=== PATIENT | male | born 1985 ===

== ENCOUNTER 2016-12-11 08:21 | Emergency (ER) | payer OTHER ==
[2016-12-11 08:41] VITALS: BMI 22.5
[2016-12-11 08:44] VITALS: TEMP 98.6; O2SAT 100
[2016-12-11] MEDS ORDERED: TDAP Vaccine 0.5 mL Syr IM ONE (09:13)
--- NOTE | 2016-12-11 09:26 | ED PDOC ---
Arrival/HPI - General Chief Complaint: Trauma Time Seen by Provider: 12/11/16 09:05 Historian: Patient - History of Present Illness Narrative History of Present Illness (Text): 12/11/16 09:22 31yr old male presents today with head injury. pt states he was getting the garbage and didnt realize that the house roof was low and hit head into the edge of the house. pt denies loc. states he was feeling dizzy initially. pt states dizziness has resolved but he is still has severe headache. describes headache as 5/10 throbbing location to the entire top of the head. pt c/o abrasion to top of scalp. denies fever/chills. unsure of last tetanus shot. no N /v. Past Medical History - Provider Review Nursing Documentation Reviewed: Yes - Travel History Have you recently traveled outside [place] w/in the past 3 mons?: No - Psychiatric Hx Substance Use: No Family/Social History - Physician Review Nursing Documentation Reviewed: Yes Family/Social History: Unknown Family HX Smoking Status: Never Smoked Hx Alcohol Use: Yes Frequency of alcohol use: Socially Hx Substance Use: No Allergies/Home Meds Allergies/Adverse Reactions: Allergies No Known Allergies Allergy (Verified 12/11/16 08:41) Review of Systems - Review of Systems Constitutional: absent: Fatigue, Fevers Eyes: absent: Vision Changes, Photophobia, Eye Pain ENT: absent: Sinus Congestion Respiratory: absent: SOB, Cough Cardiovascular: absent: Chest Pain, Palpitations Gastrointestinal: absent: Abdominal Pain, Nausea, Vomiting Skin: Laceration (abrasion of scalp) Neurological: Headache, Dizziness Physical Exam Vital Signs Reviewed: Yes Vital Signs Temp Pulse Resp BP Pulse Ox 12/11/16 10:22 70 16 110/79 100 12/11/16 08:43 98.6 F 73 17 109/74 100 Temperature: Afebrile Blood Pressure: Normal Pulse: Regular Respiratory Rate: Normal Appearance: Positive for: Well-Appearing, Non-Toxic, Comfortable Pain Distress: None Mental Status: Positive for: Alert and Oriented X 3 - Systems Exam Head: Present: Tenderness (+ ttp over abrasion site; no step offs. no crepitus) , Laceration (there is a superficial 0.5cm laceration to top of scalp; minimal bleeding; no step offs or crepitus. ) Pupils: Present: PERRL Extroacular Muscles: Present: EOMI Mouth: Present: Moist Mucous Membranes Neck: Present: Normal Range of Motion. No: MIDLINE TENDERNESS, Paraspinal Tenderness Respiratory/Chest: Present: Clear to Auscultation, Good Air Exchange. No: Respiratory Distress, Accessory Muscle Use Cardiovascular: Present: Regular Rate and Rhythm, Normal S1, S2. No: Murmurs Neurological: Present: GCS=15, Speech Normal Skin: Present: Warm, Dry, Normal Color Psychiatric: Present: Alert, Oriented x 3 Medical Decision Making ED Course and Treatment: 12/11/16 09:27 pt non toxic well appearing; no distress. tetanus updated tylenol given po ct head; wnl wound irrigated with copious amounts of NS using high pressure irrigation laceration; repaired with 1 staple 12/11/16 10:54 pt reassessment; feeling better with medications; vitals stable. will d/c home to f/u with pmd. advised keeping wound clean and dry; advised return immediately if symptoms worsen,persist or if new symptoms develop. impression; head injury, laceration scalp motrin every 6 hours as needed for pain keep wound clean and dry; apply bacitracin twice daily return in 10 days for staple removal. follow up with the primary care physician within the next 2 days return immediately if signs of infection develop; high fevers, increasing pain, redness, swelling, pus discharge or if any other concerning symptoms develop. - RAD Interpretation Radiology Orders: 12/11/16 09:13 HEAD W/O CONTRAST [CT] Stat - Medication Orders Current Medication Orders: Discontinued Medications Acetaminophen (Tylenol 325mg Tab) 975 mg PO STAT STA Stop: 12/11/16 09:14 Last Admin: 12/11/16 09:47 Dose: 975 mg Tetanus/Reduced Diphtheria/Acell Pertussis (Boostrix Vaccine Inj) 0.5 ml IM .ONCE ONE Stop: 12/11/16 09:14 Last Admin: 12/11/16 09:48 Dose: 0.5 ml Procedure: Wound Repair - Procedure Procedure: Wound Repair: scalp laceration - Performed by Performed by: Mid-level Provider - Indications Indication(s):: Laceration - Location Location:: Scalp Dimensions Length cm: 0.5cm Depth:: Epidermis - Debris Debris:: None - Irrigated Irrigated with ml of normal saline: copious amounts of NS using high pressure irrigation - Complexity Complexity:: Simple (one layer) - Wound repair method Sutures:: # (1 staple placed) - Complications Complications: none - Patient tolerated procedure Patient Tolerated Procedure:: Well Disposition/Present on Arrival - Present on Arrival Any Indicators Present on Arrival: No History of DVT/PE: No History of Uncontrolled Diabetes: No Urinary Catheter: No History of Decub. Ulcer: No History Surgical Site Infection Following: None - Disposition Have Diagnosis and Disposition been Completed?: Yes Diagnosis: Head injury, Headache, Laceration of scalp Disposition: HOME/ ROUTINE Disposition Time: 10:56 Patient Plan: Discharge Patient Problems: Current Active Problems Problem Status Onset Abrasion, scalp w/o infection Acute Head injury Acute Headache Acute Condition: GOOD Discharge Instructions (ExitCare): Head Injury (ED), Acute Wound Care (ED), Laceration (ED) Print Language: PORTUGUESE Additional Instructions: motrin every 6 hours as needed for pain keep wound clean and dry; apply bacitracin twice daily RETURN IN 10 DAYS FOR STAPLE REMOVAL. follow up with the primary care physician within the next 2 days return immediately if signs of infection develop; high fevers, increasing pain, redness, swelling, pus discharge or if any other concerning symptoms develop. Prescriptions: Bacitracin OINT 1 applic TP BID #1 tube Ibuprofen [Motrin] 600 mg PO Q6H PRN #20 tab PRN Reason: pain/fever reduction Referrals: [facility] at [facility] [place] [Outside] - Follow up with primary Brandan Rossi MD [Staff Provider] - Follow up with primary Forms: WORK NOTE
--- NOTE | 2016-12-11 10:32 | CT ---
PROCEDURE: CT HEAD WITHOUT CONTRAST. HISTORY: headache/head injury COMPARISON: None available. TECHNIQUE: Axial computed tomography images were obtained through the head/brain without intravenous contrast. Radiation dose: Total exam DLP = 725 mGy-cm. This CT exam was performed using one or more of the following dose reduction techniques: Automated exposure control, adjustment of the mA and/or kV according to patient size, and/or use of iterative reconstruction technique. FINDINGS: HEMORRHAGE: No intracranial hemorrhage. BRAIN: No mass effect or edema. No atrophy or chronic microvascular ischemic changes. VENTRICLES: Unremarkable. No hydrocephalus. CALVARIUM: Unremarkable. PARANASAL SINUSES: Unremarkable as visualized. No significant inflammatory changes. MASTOID AIR CELLS: Unremarkable as visualized. No inflammatory changes. OTHER FINDINGS: None. IMPRESSION: No acute findings
[2016-12-11 11:22] VITALS: RESP 16
[2016-12-11 12:02] VITALS: BP 110/76; PULSE 74
== END 2016-12-11 12:04 | disposition home or self-care (01) ==
LOC: ED 08:21
DX: S01.01XA Laceration without foreign body of scalp, initial encounter (principal); W22.8XXA Striking against or struck by other objects, initial encounter; Y93.89 Activity, other specified; Y92.89 Other specified places as the place of occurrence of the external cause; Y99.8 Other external cause status; Z23 Encounter for immunization

== ENCOUNTER 2016-12-20 15:53 | Emergency (ER) | payer OTHER ==
[2016-12-20 16:06] VITALS: BP 128/73; PULSE 67; RESP 16; TEMP 98.9; O2SAT 98; BMI 22.6
--- NOTE | 2016-12-20 16:12 | ED PDOC ---
Arrival/HPI - General Historian: Patient - General Chief Complaint: Suture/Staple Removal Time Seen by Provider: 12/20/16 16:08 - History of Present Illness Narrative History of Present Illness (Text): 12/20/16 16:09 31 y/o male, here for the staple removal s/p stapled 9 days ago. Wound healing well and dry, no fever or chills, no headache or dizziness, no other medical or psychological complaints. (Eliseo Babb) Past Medical History - Provider Review Nursing Documentation Reviewed: Yes - Psychiatric Hx Substance Use: No - Surgical History Hx Vascular Surgery: Yes Other/Comment: Circumcision Family/Social History - Physician Review Nursing Documentation Reviewed: Yes Family/Social History: Unknown Family HX Smoking Status: Never Smoked Hx Alcohol Use: Yes Hx Substance Use: No Allergies/Home Meds Allergies/Adverse Reactions: Allergies No Known Allergies Allergy (Verified 12/11/16 08:41) Review of Systems - Review of Systems Constitutional: absent: Fatigue, Fevers Respiratory: absent: SOB, Cough Cardiovascular: absent: Chest Pain Gastrointestinal: absent: Abdominal Pain, Nausea, Vomiting Neurological: absent: Headache, Dizziness Physical Exam Vital Signs Reviewed: Yes Temperature: Afebrile Blood Pressure: Normal Pulse: Regular Respiratory Rate: Normal Appearance: Positive for: Well-Appearing, Non-Toxic, Comfortable Pain Distress: None Mental Status: Positive for: Alert and Oriented X 3 - Systems Exam Head: Present: Other (visible 1 staple noted on the parietal region. ) Pupils: Present: PERRL Extroacular Muscles: Present: EOMI Conjunctiva: Present: Normal Respiratory/Chest: Present: Clear to Auscultation, Good Air Exchange. No: Respiratory Distress, Accessory Muscle Use Cardiovascular: Present: Regular Rate and Rhythm, Normal S1, S2. No: Murmurs Abdomen: Present: Normal Bowel Sounds. No: Tenderness, Distention, Peritoneal Signs Back: Present: Normal Inspection Upper Extremity: Present: Normal Inspection. No: Cyanosis, Edema Lower Extremity: Present: Normal Inspection. No: Edema Neurological: Present: GCS=15, Speech Normal, Motor Func Grossly Intact, Gait Normal, Memory Normal Skin: Present: Warm, Dry, Normal Color. No: Rashes Psychiatric: Present: Alert, Oriented x 3, Normal Insight, Normal Concentration Medical Decision Making ED Course and Treatment: 12/20/16 16:12 -1 staple removed with success. -Discharge home with education on follow up with your own pmd within 2 days, return to the ER for any new or worsening signs or symptoms. (Eliseo Babb) I was available for consultation during PA evaluation. The chart was reviewed by me, and I agree with disposition. The documented history was done by the physician machine shop supervisor. The documented physical exam was done by the physician machine shop supervisor. The documented procedures were done by the physician machine shop supervisor. ( Estrada Santos) - PA / PACK WORKER / Resident Statement MD/DO has reviewed & agrees with the documentation as recorded. Disposition/Present on Arrival - Present on Arrival Any Indicators Present on Arrival: No History of DVT/PE: No History of Uncontrolled Diabetes: No Urinary Catheter: No History of Decub. Ulcer: No History Surgical Site Infection Following: None - Disposition Have Diagnosis and Disposition been Completed?: Yes Disposition Time: 16:13 Patient Plan: Discharge - Disposition Diagnosis: Removal of staple Disposition: HOME/ ROUTINE Condition: GOOD Additional Instructions: Discharge home with education on follow up with your own pmd within 2 days, return to the ER for any new or worsening signs or symptoms. Referrals: [facility] at [facility] [place] [Outside] - Follow up with primary Forms: WORK NOTE
== END 2016-12-20 16:41 | disposition home or self-care (01) ==
LOC: ED 15:53
DX: Z48.02 Encounter for removal of sutures (principal)